=== PATIENT | female | born 1950 | race Caucasian/White ===

== ENCOUNTER → 2017-01-15 | Outpatient (CLI) | payer OTHER, MEDICARE | LOC: CIMAGING 16:38 | PROVIDERS: ATTEND Internal Medicine | DX: N17.9 Acute kidney failure, unspecified (principal); R39.198 Other difficulties with micturition | CPT/HCPCS: 76770-PO ==

== ENCOUNTER 2017-09-21 09:37 | Emergency (ER) | payer OTHER, MEDICARE ==
--- NOTE | 2017-09-21 09:50 | EDPHY ---
H & P Stated Complaint: foosh pain in rt wrist Time Seen by Provider: 09/21/17 09:47 HPI/ROS: CHIEF COMPLAINT: Right wrist pain HISTORY OF PRESENT ILLNESS: The patient is a 67-year-old female who comes to the emergency department after a fall on outstretched hand while walking her dog. She landed on her right wrist. She complains of right wrist pain. She denies elbow shoulder head or neck injury. This happened about 30 min prior to arrival. REVIEW OF SYSTEMS: Constitutional: denies: chills, fever, recent illness, recent injury EENTM: denies: blurred vision, double vision, nose congestion Respiratory: denies: cough, shortness of breath Cardiac: denies: chest pain, irregular heart rate, lightheadedness, palpitations Gastrointestinal/Abdominal: denies: abdominal pain, diarrhea, nausea, vomiting, blood streaked stools Genitourinary: denies: dysuria, frequency, hematuria, pain Musculoskeletal: See HPI Skin: denies: lesions, rash, jaundice, bruising Neurological: denies: headache, numbness, paresthesia, tingling, dizziness, weakness Hematologic/Lymphatic: denies: blood clots, easy bleeding, easy bruising Immunologic/allergic: denies: HIV/AIDS, transplant EXAM: GENERAL: Well-appearing, well-nourished and in no acute distress. HEAD: Atraumatic, normocephalic. EYES: Pupils equal round and reactive to light, extraocular movements intact, sclera anicteric, conjunctiva are normal. ENT: TMs normal, nares patent, oropharynx clear without exudates. Moist mucous membranes. NECK: Normal range of motion, supple without lymphadenopathy or JVD. LUNGS: Breath sounds clear to auscultation bilaterally and equal. No wheezes rales or rhonchi. HEART: Regular rate and rhythm without murmurs, rubs or gallops. ABDOMEN: Soft, nontender, normoactive bowel sounds. No guarding, no rebound. No masses appreciated. BACK: No CVA tenderness, no spinal tenderness, step-offs or deformities EXTREMITIES: Pain to right wrist, no obvious swelling or deformity. Pulses intact. Normal range of motion, no pitting or edema. No clubbing or cyanosis. NEUROLOGICAL: Cranial nerves II through XII grossly intact. Normal speech, normal gait. 5/5 strength, normal movement in all extremities, normal sensation PSYCH: Normal mood, normal affect. SKIN: Warm, dry, normal turgor, no visible rashes or lesions. Source: Patient Exam Limitations: No limitations - Personal History Current Tetanus/Diphtheria Vaccine: Unsure Current Tetanus Diphtheria and Acellular Pertussis (TDAP): Unsure - Medical/Surgical History Hx Asthma: No Hx Chronic Respiratory Disease: No Hx Diabetes: No Hx Cardiac Disease: No Hx Renal Disease: No Hx Cirrhosis: No Hx Alcoholism: No Hx HIV/AIDS: No Hx Splenectomy or Spleen Trauma: No Other PMH: Hypothyroid - Family History Significant Family History: No pertinent family hx - Social History Smoking Status: Former smoker Alcohol Use: None Constitutional: Initial Vital Signs Heart Rate 83 09/21/17 09:40 Respiratory Rate 16 09/21/17 09:40 Blood Pressure 113/67 09/21/17 09:40 O2 Sat (%) 97 09/21/17 09:40 O2 Delivery Mode Room Air Allergies/Adverse Reactions: No Known Allergies Allergy (Verified 09/21/17 09:45) Home Medications: Medication Instructions Recorded Synthroid 75 mcg (*) 09/21/17 T 4 09/21/17 Medical Decision Making - Diagnostics Imaging Results: Imaging Impressions Wrist X-Ray 09/21/17 09:49 Impression: 1. Slightly displaced vertical fracture through the radial styloid, with intra- articular extension. 2. Ulnar styloid avulsion. 3. Widening of the scapholunate interspace may be related to ligamentous disruption. Imaging: Discussed imaging studies w/ machine scallop cutter Radiologist Procedures: The patient was given anesthesia with a hematoma block. 10 cc of bupivacaine injected. Successful anesthesia obtained. Orthopedic reduction: The patient's wrist fracture was reduced after several attempts. We eventually moved to the radiology room with fluoroscopy. She tolerated the procedure well. She was splinted with significant dorsal flexion to maintain positioning. Procedure: Splint placement. A sugar-tong splint was applied. After application of the splint I returned and re-examined the patient. The splint was adequately immobilizing the joint and distal to the splint the patient's circulation and sensation was intact. ED Course/Re-evaluation: Patient tolerated the procedure well. A required several attempts to reduce her fracture initially we did not have fluoro and then removed to the radiology suite where we did. She was splinted and dorsiflexion. She declines pain medication prescription. I will have her follow up with Hand surgery. Differential Diagnosis: Partial list of the Differential diagnosis considered include but were not limited to; wrist fracture, sprain and although unlikely based on the history and physical exam, I also considered open fracture, tendon injury, nerve injury , vascular injury, head injury. I discussed these differential diagnoses and the plan with the patient as well as the usual and expected course. The patient understands that the diagnosis is provisional and that in medicine we are not always correct and that further workup is often warranted. Usual and customary warnings were given. All of the patient's questions were answered. The patient was instructed to return to the emergency department should the symptoms at all worsen or return, otherwise to followup with the physician as we discussed. - Data Points Medications Given: Discontinued Medications Ibuprofen (Motrin) 600 mg PO EDNOW ONE Stop: 09/21/17 09:52 Last Admin: 09/21/17 09:57 Dose: 600 mg Oxycodone/Acetaminophen (Percocet 5/325mg Prepack#4) 1 btl TAKEHOME EDNOW ONE Stop: 09/21/17 12:20 Last Admin: 09/21/17 12:28 Dose: 1 btl Departure - Departure Disposition: Home, Routine, Self-Care Clinical Impression: Colles' fracture of right radius Qualifiers: Encounter type: initial encounter Fracture type: closed Qualified Code(s): S52.531A - Colles' fracture of right radius, initial encounter for closed fracture Condition: Fair Instructions: Oxycodone/Acetaminophen (By mouth), Wrist Fracture in Adults (ED) Referrals: Elsa Ritter MD [Primary Care Provider] - As per Instructions Jitendra Gee MD [Medical Doctor] - 5-7 days, call for appt.
[2017-09-21] MEDS ORDERED: IBUPROFEN 600 MG TAB PO ONE (09:51)
[2017-09-21] MEDS ORDERED: OXYCODONE/APAP 5/325MG PREPACK#4 BTL TAKEHOME ONE (12:19)
[2017-09-21 12:20] VITALS: BP 116/86
== END 2017-09-21 12:30 | disposition home or self-care (01) ==
LOC: CED 09:37
PROC: 0PSHXZZ Reposition Right Radius, External Approach (ICD-10-PCS; principal; 2017-09-21)
DX: S52.531A Colles' fracture of right radius, initial encounter for closed fracture (principal); Z87.891 Personal history of nicotine dependence; W18.39XA Other fall on same level, initial encounter; Y99.8 Other external cause status; Y93.01 Activity, walking, marching and hiking
CPT/HCPCS: 73110-PO

== ENCOUNTER → 2018-01-27 | Outpatient (CLI) | payer OTHER, MEDICARE | LOC: BRMIMAGING 09:13 | PROVIDERS: ATTEND Internal Medicine | DX: Z13.820 Encounter for screening for osteoporosis (principal); M81.0 Age-related osteoporosis without current pathological fracture; Z87.81 Personal history of (healed) traumatic fracture ==